=== PATIENT | male | born 1975 | race Caucasian/White ===

== ENCOUNTER 2023-09-13 12:08 | Day surgery (SDC) | payer OTHER ==
[~2023-09-13] VITALS: Ht 177.8 cm; Wt 64.9 kg
[~2023-09-13 12:08] MED LIST: LR 1,000 ML IV SCH
[2023-09-13] MEDS ORDERED: Glycopyrrolate 0.2 MG/ML 1 ML VIAL ONE (12:43)
[2023-09-13] MEDS ORDERED: Ketorolac 30 MG/ML VIAL ONE (12:43)
[2023-09-13] MEDS ORDERED: Lidocaine PF 2% (20 MG/ML) 5 ML VIAL ONE ×2 (12:43→14:12)
[2023-09-13] MEDS ORDERED: Ondansetron 4 MG/2 ML VIAL ONE (12:43)
[2023-09-13] MEDS ORDERED: NS 10 ML IV ONE (12:43)
[2023-09-13] MEDS ORDERED: fentaNYL 50 MCG/ML 2 ML VIAL ONE (12:43)
[2023-09-13] MEDS ORDERED: dexAMETHasone 10 MG/ML VIAL ONE (12:43)
[2023-09-13] MEDS ORDERED: Morphine 2 MG/1 ML VIAL [PACU/SDC ONLY] IV PRN (12:45)
[2023-09-13] MEDS ORDERED: HYDROmorphone 1 MG/1 ML SYRINGE [PACU/SDC ONLY] IV PRN (12:45)
[2023-09-13] MEDS ORDERED: Meperidine 50 MG/ML 1 ML VIAL IV PRN (12:45)
[2023-09-13] MEDS ORDERED: Rocuronium 50 MG/5 ML Multi-Dose VIAL ONE (12:50)
[2023-09-13 13:21] VITALS: BP 160/102; PULSE 76; TEMP 97.9
[2023-09-13] MEDS ORDERED: NORCO 325 MG-51 TAB PO (13:28)
[2023-09-13] MEDS ORDERED: Acetaminophen 325 MG TAB PO PRN (13:30)
[2023-09-13] MEDS ORDERED: Ibuprofen 600 MG TAB PO PRN (13:30)
[2023-09-13] MEDS ORDERED: Ondansetron 4 MG/2 ML VIAL IV PRN (13:30)
[2023-09-13] MEDS ORDERED: hydrALAZINE 20 MG/ML 1 ML VIAL IV SCH (15:18)
[2023-09-13 16:05] VITALS: BP 127/73; PULSE 80; TEMP 97.8
[2023-09-13 16:20] VITALS: BP 132/80; PULSE 76
[2023-09-13 16:35] VITALS: BP 136/79; PULSE 76
--- NOTE | 2023-09-13 16:50 | NUR ---
1605 RETURNS TO ROOM 2 PER CART WITH HOB ELEVATED 30 DEGREEES. AWAKE, ALERT. RESP UNLABORED. VITAL SIGNS OBTAINED. ABD SOFT. BANDAIDS X 3 SITES, CLEAN DRY AND INTACT. SCROTAL SUPPORT ON. PATIENT REPORTS MILD DISCOMFORT. DENIES NEED FOR PAIN MED. CALL LIGHT AT SIDE. MOTHER IN ROOM 1620 HOB ELEVATED 75 DEGREES. TOLERATES PO SODA WITHOUT NAUSEA 1625 DISCHARGE INSTRUCTIONS REVIEWED. PATIENT VERBALIZES UNDERSTANDING. COPY PROVIDED INN DISCHARGE FOLDER 1640 SITS ON EDGE OF CART. DRESSES SELF
== END 2023-09-13 16:50 | disposition home or self-care (01) ==
LOC: SDCO 12:08 → EDBD 14:00 → SDCO 16:50
DX: K40.20 Bilateral inguinal hernia, without obstruction or gangrene, not specified as recurrent (principal)
CPT/HCPCS: C1781; J0360; J0690; J1100; J1170; J1885; J2405; J2704; J3010; J7120